=== PATIENT | male | born 2000 | race Caucasian/White ===

== ENCOUNTER 2018-07-30 20:32 | Inpatient (IN) | payer MEDICAID, OTHER | END 2018-08-04 13:35 | disposition home or self-care (01) | LOC: ER 20:32 → OVERFLOW 07-31 08:03 → EAST 07-31 10:45 | DX: K80.01 Calculus of gallbladder with acute cholecystitis with obstruction (principal); K80.50 Calculus of bile duct without cholangitis or cholecystitis without obstruction; E55.9 Vitamin D deficiency, unspecified; F84.0 Autistic disorder ==